=== PATIENT | female | born 2000 | race African-American/Black ===

== ENCOUNTER 2023-02-25 16:58 | Emergency (ER) | payer OTHER ==
[~2023-02-25] VITALS: Ht 175.3 cm; Wt 90.0 kg
[2023-02-25 19:08] LABS: BASO % 0.4 % (0.0-1.0); EOS # 0.3 10^3/uL (0.0-0.5); EOS % 5.7 % (0.0-3.0); HEMATOCRIT 41.8 % (36.0-47.0); HEMOGLOBIN 13.4 g/dl (12.0-15.5); LYMPH # 2.7 10^3/uL (1.5-5.0); LYMPH % 52.1 % (24.0-44.0); MEAN CORPUSCULAR HEMOGLOBIN 27.1 pg (27.0-33.0); MEAN CORPUSCULAR HGB CONC 32.1 g/dl (32.0-36.5); MEAN CORPUSCULAR VOLUME 84.4 fl (80.0-96.0); MONO # 0.3 10^3/uL (0.0-0.8); MONO % 6.3 % (2.0-8.0); NEUTROPHILS # 1.8 10^3/uL (1.5-8.5); NEUTROPHILS % 35.3 % (36.0-66.0); PLATELET COUNT, AUTOMATED 231 10^3/uL (150-450); RED BLOOD COUNT 4.95 10^6/uL (4.00-5.40); WHITE BLOOD COUNT 5.1 10^3/uL (4.0-10.0)
[2023-02-25 19:31] LABS: BLOOD UREA NITROGEN 14 MG/DL (9-23); CALCIUM LEVEL 9.1 MG/DL (8.5-10.1); CARBON DIOXIDE LEVEL 26 MMOL/L (20-31); CHLORIDE LEVEL 109 MMOL/L (98-107); CREATININE FOR GFR 0.91 MG/DL (0.55-1.30); GLOMERULAR FILTRATION RATE > 60.0 (>60); GLUCOSE, FASTING 88 MG/DL (60-100); HCG, SERUM QUALITATIVE NEGATIVE (NEGATIVE); POTASSIUM SERUM 4.3 MMOL/L (3.5-5.1); SODIUM LEVEL 141 MMOL/L (136-145)
[2023-02-25] MEDS ORDERED: NS 1,000 ML IV ONE (21:05)
[2023-02-26 00:18] LABS: CHLAMYDIA DNA AMPLIFICATION NEGATIVE (NEGATIVE); GC DNA AMPLIFICATION NEGATIVE (NEGATIVE)
[2023-02-26] MEDS ORDERED: PROV10TA PO (00:33)
[2023-02-26] MEDS ORDERED: medroxyPROGESTERone 5MG TABLET PO ONE (01:00)
[2023-02-26 01:35] VITALS: BP 124/80; TEMP 98.8; O2SAT 99
[2023-02-26] MEDS ORDERED: medroxyPROGESTERone 5MG TABLET PO SCH (09:00)
== END 2023-02-26 01:39 | disposition home or self-care (01) ==
LOC: M ED 16:58
DX: N92.6 Irregular menstruation, unspecified (principal)